=== PATIENT | female | born 1945 | race African-American/Black ===

== ENCOUNTER 2020-07-04 13:22 | Inpatient (IN) | payer MEDICARE, OTHER ==
[~2020-07-04] VITALS: Ht 154.9 cm; Wt 44.5 kg
[~2020-07-04 13:22] MED LIST: ASPI-543 PO; BENA20TA14 PO; DONE10TA40 PO; HYDR-2595 PO; HYDR-4833 PO; LEV100T PO; METF-370 PO
[2020-07-04] MEDS ORDERED: SODIUM CHLORIDE 0.9% 1,000 ML IV ONE (14:15)
[2020-07-04 15:53] LABS: Basophils # (auto) 0 10 ^3/uL (0-0.2); Eosinophils # (auto) 0 10 ^3/uL (0-0.8); Mean Corpuscular Hgb Conc. 33.2 g/dL (32.0-36.0); Monocytes # (auto) 0.3 10 ^3/uL (0-1.3); Neutrophils # (auto) 2.4 10 ^3/uL (1.6-8.6); White Blood Cell 3.4 10^3/uL (4.4-10.8)
[2020-07-04 15:55] LABS: Basophils % (auto) 0.7 % (0.0-2.0); Hematocrit 30.1 % (36.0-46.0); Lymphocytes # (auto) 0.7 10 ^3/uL (0.4-5.4); Lymphocytes % (auto) 21.5 % (10.0-50.0); Mean Corpuscular Hemoglobin 34.5 pg (28.0-32.0); Mean Corpuscular Volume 104.1 fL (80.0-100.0); Monocytes % (auto) 7.8 % (0.0-12.0); Nucleated Red Blood Cells % 0.1 %; Platelet Count (auto) 134 10^3/uL (140-450); Red Blood Cells 2.89 10^6/uL (4.0-5.20); Red Cell Distribution Width 12.8 % (11.8-14.3)
[2020-07-04 16:10] LABS: Albumin 3.7 g/dL (3.4-5.0); Calcium 8.4 mg/dL (8.5-10.1); Magnesium 2.1 mg/dL (1.6-2.6); Potassium 3.8 mmol/L (3.5-5.1)
[2020-07-04 16:15] LABS: Total Protein 7.9 g/dL (6.4-8.2)
[2020-07-04 17:46] LABS: INR 1.07 (0.9-1.15); Partial Thromboplastin Time 24.9 sec (23.0-31.2)
[2020-07-04] MEDS ORDERED: ONDANSETRON HCL 4 MG/2 ML VIAL IV PRN (18:45)
[2020-07-04] MEDS ORDERED: SODIUM CHLORIDE 0.9% 1,000 ML IV SCH (18:45)
[2020-07-04] MEDS ORDERED: NITROGLYCERIN 0.4 MG SL TAB SL PRN (18:45)
[2020-07-04] MEDS ORDERED: DEXTROSE (50%) 50ML SYRG IV PRN (18:45)
[2020-07-04] MEDS ORDERED: MORPHINE SULF INJ 2 MG/ML SYRINGE 1ML IV PRN ×2 (18:45)
[2020-07-04 20:01] LABS: CRP High Sensitivity 2.97 mg/dL (< 0.3)
[2020-07-04] MEDS: HYDROcodone-ACET 5/325MG TAB PO PRN (20:31)
[2020-07-04] MEDS: METOPROLOL TARTRATE 25 MG TAB PO SCH (22:00)
[2020-07-04] MEDS: ALBUTEROL SULF HFA 90MCG INH 200DOSE IN SCH (22:00)
[2020-07-04] MEDS: BUDESONIDE (INHALATION) 180 MCG IH IN SCH (22:00)
[2020-07-04] MEDS: InsuLIN REG 1unit/0.01ml Soln (100units/ml) SC SCH (22:00)
[2020-07-04] MEDS: DOXYCYCLINE 100 MG TAB/CAP PO SCH (22:02)
[2020-07-04] MEDS: DOCUSATE SOD 100 MG CAP PO SCH (22:02)
[2020-07-04] MEDS: ATORVASTATIN 20 MG TAB PO SCH (22:02)
[2020-07-04] MEDS: DONEPEZIL HYDROCHLORIDE 5 MG TAB PO SCH (22:02)
[2020-07-04] MEDS: ACCU-CHEK COMFORT CURVE STRIP VI SCH (22:22)
[2020-07-05 02:44] VITALS: BP 154/81
--- NOTE | 2020-07-05 02:55 | NUR ---
ADMIT TO TELE FROM ER Assumed care of patient who is alert and oriented, COVID positive to the tele #10 running SB @59. Currently on 2L NC @97% with no S/S of distress or SOB noted at this time. Patient denies any pain. Patient is oriented to hospital policies, and room. POC discussed with patient, all questions answered, patient verbalized understanding. Bed is locked in lowest position, side rails up x2. Call light within reach, patient is encouraged to call for assistance as needed. Will continue to monitor PRN/Q1hr.
[2020-07-05 03:35] VITALS: BP 120/69
[2020-07-05] MEDS: InsuLIN REG 1unit/0.01ml Soln (100units/ml) SC SCH ×4 (06:37→22:00)
[2020-07-05] MEDS: ACCU-CHEK COMFORT CURVE STRIP VI SCH ×4 (06:37→22:15)
[2020-07-05] MEDS: LEVOTHYROXINE SODIUM 100 MCG TAB PO SCH (07:04)
[2020-07-05] MEDS: ALBUTEROL SULF HFA 90MCG INH 200DOSE IN SCH ×3 (07:17→22:55)
[2020-07-05] MEDS: BUDESONIDE (INHALATION) 180 MCG IH IN SCH ×2 (07:17→22:54)
--- NOTE | 2020-07-05 07:17 | NUR ---
Respiratory note: PT SEEN, AWAKE AND ALERT, NO RESP DISTRESS NOTED. MDI'S NOT AT BEDSIDE. WILL CALL PHARMACY. HR 56, RR 16, SPO2 95% ON 2L N/C.
--- NOTE | 2020-07-05 07:41 | NUR ---
CARE ENDORSED TO DAY SHIFT RN
[2020-07-05 07:57] LABS: Basophils # (auto) 0 10 ^3/uL (0-0.2); Basophils % (auto) 0.5 % (0.0-2.0); Eosinophils # (auto) 0 10 ^3/uL (0-0.8); Eosinophils % (auto) 0.1 % (0.0-7.0); Hematocrit 32.7 % (36.0-46.0); Lymphocytes # (auto) 0.6 10 ^3/uL (0.4-5.4); Mean Corpuscular Hgb Conc. 33.6 g/dL (32.0-36.0); Monocytes # (auto) 0.2 10 ^3/uL (0-1.3); Monocytes % (auto) 5.7 % (0.0-12.0); Neutrophils # (auto) 3.1 10 ^3/uL (1.6-8.6); Neutrophils % (auto) 78.7 % (37.0-80.0); Platelet Count (auto) 120 10^3/uL (140-450); Red Blood Cells 3.15 10^6/uL (4.0-5.20); Red Cell Distribution Width 12.2 % (11.8-14.3); White Blood Cell 3.9 10^3/uL (4.4-10.8)
[2020-07-05 08:12] LABS: Albumin 3.6 g/dL (3.4-5.0); Calcium 8.3 mg/dL (8.5-10.1); Potassium 3.7 mmol/L (3.5-5.1)
[2020-07-05 08:15] LABS: BUN/Creatinine Ratio 19.5; Bilirubin, Total 1.1 mg/dL (0.2-1.0); Total Protein 7.4 g/dL (6.4-8.2)
[2020-07-05 08:32] VITALS: BP 121/60
[2020-07-05] MEDS: ZINC SULFATE 220mg CAP or TAB PO SCH (10:12)
[2020-07-05] MEDS: CHOLECALCIFEROL (VITD3) 2,000 UNIT CAP PO SCH (10:13)
[2020-07-05] MEDS: ASCORBIC ACID 1,000 MG TAB PO SCH (10:13)
[2020-07-05] MEDS: FAMOTIDINE 20 MG TAB PO SCH (10:13)
[2020-07-05] MEDS: METOPROLOL TARTRATE 25 MG TAB PO SCH (10:14)
[2020-07-05] MEDS: DOXYCYCLINE 100 MG TAB/CAP PO SCH ×2 (10:14→22:14)
[2020-07-05] MEDS: DOCUSATE SOD 100 MG CAP PO SCH ×2 (10:16→22:14)
[2020-07-05 12:29] VITALS: BP 152/89
[2020-07-05] MEDS ORDERED: ENOXAPARIN SOD 40 MG/0.4 ML SYRINGE SC ONE (12:30)
--- NOTE | 2020-07-05 13:04 | NUR ---
New orders received to dc CT with contrast d/t pt increased kidney levels and allergy to iodine per MD Hoover. BLE doppler ordered instead. Cont care
--- NOTE | 2020-07-05 14:05 | NUR ---
MD Hoover aware of results from Doppler including left dvt, per MD Hoover cont Lovenox 40mg as ordered. Cont to monitor
--- NOTE | 2020-07-05 15:34 | NUR ---
paged regarding clarification for Remdesivir, no order found in chart to start Remdesivir today. Awaiting Call back from Dr Hoover
--- NOTE | 2020-07-05 16:01 | NUR ---
No new orders for Remdesivir received from MD Hoover at this time states cont to monitor. MD aware of patient's status including decreased HR in the 40's-50's and order to dc Metoprolol received from MD Burnham. Cont care
--- NOTE | 2020-07-05 19:17 | NUR ---
Patient care endorsed endorsed care to Geraldine rn, pt sitting up in bed eating dinner now. Patient proning throughout the day as tolerated and doing IS as ordered. Pt on 2L n/c. No acute distress or sob noted. Call light within reach and fall precs in place per protocol.
--- NOTE | 2020-07-05 19:20 | NUR ---
Opening Shift Note Assumed care of patient, awake and alert. No S/S of distress/SOB or pain. Pt saturating at 99% on 2L O2 via nasal cannula. Safety measures in place, bed in lowest locked position, bed rails raised x2, call light within reach, bed alarm armed. All needs met at this time. Pt expresses feeling good at this time and is in good spirits. Instructed on POC and to call for assist PRN, will continue to monitor for changes Q1hr and PRN.
[2020-07-05 22:00] VITALS: BP 137/82
[2020-07-05] MEDS: DONEPEZIL HYDROCHLORIDE 5 MG TAB PO SCH (22:14)
[2020-07-05] MEDS: ENOXAPARIN SOD 40 MG/0.4 ML SYRINGE SC SCH (22:14)
[2020-07-05] MEDS: ATORVASTATIN 20 MG TAB PO SCH (22:14)
--- NOTE | 2020-07-06 04:30 | NUR ---
IV insertion IV access obtained, via clean sterile technique by inserting 20 gauge catheter at the right forearm after 1 attempt. IV secured properly. No trauma to site. Patient tolerated well.
--- NOTE | 2020-07-06 04:40 | NUR ---
Pt BP elevated at 172/82, PRN IV hydralazine administered, will reassess and continue to monitor.
[2020-07-06] MEDS: hydrALAZINE HCL 20 MG/ML VL IV PRN (04:51)
[2020-07-06 05:00] VITALS: BP 168/89
[2020-07-06] MEDS: LEVOTHYROXINE SODIUM 100 MCG TAB PO SCH (06:22)
[2020-07-06] MEDS: HYDROcodone-ACET 5/325MG TAB PO PRN (06:23)
[2020-07-06] MEDS: InsuLIN REG 1unit/0.01ml Soln (100units/ml) SC SCH ×4 (06:23→21:48)
[2020-07-06] MEDS: ACCU-CHEK COMFORT CURVE STRIP VI SCH ×4 (06:23→21:47)
[2020-07-06] MEDS: ALBUTEROL SULF HFA 90MCG INH 200DOSE IN SCH ×3 (07:16→22:13)
[2020-07-06] MEDS: BUDESONIDE (INHALATION) 180 MCG IH IN SCH ×2 (07:17→22:13)
[2020-07-06 09:00] VITALS: BP 127/75
[2020-07-06] MEDS ORDERED: FUROSEMIDE 20 MG/2 ML VIAL IV SCH (10:00)
[2020-07-06] MEDS: DOCUSATE SOD 100 MG CAP PO SCH ×2 (10:24→21:46)
[2020-07-06] MEDS: DexAMETHasone SOD PHOS 10MG/1ML VIAL INJ IV SCH (10:24)
[2020-07-06] MEDS: amLODIPine BESYLATE 5 MG TAB PO SCH (10:24)
[2020-07-06] MEDS: ZINC SULFATE 220mg CAP or TAB PO SCH (10:24)
[2020-07-06] MEDS: POTASSIUM CHL 10 Meq TABLET PO SCH (10:25)
[2020-07-06] MEDS: ENOXAPARIN SOD 40 MG/0.4 ML SYRINGE SC SCH ×2 (10:25→21:48)
[2020-07-06] MEDS: FAMOTIDINE 20 MG TAB PO SCH (10:25)
[2020-07-06] MEDS: DOXYCYCLINE 100 MG TAB/CAP PO SCH ×2 (10:25→21:45)
[2020-07-06] MEDS: ASCORBIC ACID 1,000 MG TAB PO SCH (10:25)
[2020-07-06] MEDS: CHOLECALCIFEROL (VITD3) 2,000 UNIT CAP PO SCH (10:25)
[2020-07-06 11:16] LABS: Albumin 3.3 g/dL (3.4-5.0); BUN/Creatinine Ratio 19.6; Calcium 8.4 mg/dL (8.5-10.1); Potassium 3.6 mmol/L (3.5-5.1)
--- NOTE | 2020-07-06 11:20 | NUR ---
Patient found in the bathroom sitting down on the floor. Patient states she got up and she "fell and hit my head". VSS BP 101/72 HR 75 O2 95%. No acute distress or sob noted. MD Villalpando paged to notify. Fall precs in place per protocol including bed alarm on at all times.
[2020-07-06 11:34] LABS: Bilirubin, Total 1.2 mg/dL (0.2-1.0); Total Protein 7.4 g/dL (6.4-8.2)
--- NOTE | 2020-07-06 12:05 | NUR ---
MD aware of patient's status including pt found on floor and c/o pain to posterior head. No abrasions, no bruising, no bleeding noted, no swelling or signs of trauma noted. Awaiting new orders. Will cont care
[2020-07-06] MEDS ORDERED: LEVOTHYROXINE SODIUM 100 MCG/5 ML INJ IV ONE (12:30)
[2020-07-06 13:00] VITALS: BP 138/80
--- NOTE | 2020-07-06 13:04 | NUR ---
Spoke to Pharmacist regarding order for Levothyroxine, Per Stephen he will verify order. Will medicate as ordered once medication is received.
[2020-07-06 17:00] VITALS: BP 143/86
--- NOTE | 2020-07-06 18:30 | NUR ---
Spoke to Mary Anne with the blood bank states no convalescent plasma for this patient yet. Cont to monitor
--- NOTE | 2020-07-06 19:18 | NUR ---
Patient care endorsed to Mague gonzales, laying in bed no acute distress or sob currently 2l n/c 99%. Fall precs in place per protocol bed alarm on at all times
[2020-07-06] MEDS: DONEPEZIL HYDROCHLORIDE 5 MG TAB PO SCH (21:45)
[2020-07-06] MEDS: ACETAMINOPHEN 500 MG TAB PO PRN (21:45)
[2020-07-06] MEDS: ATORVASTATIN 20 MG TAB PO SCH (21:47)
[2020-07-06 22:00] VITALS: BP 137/80
[2020-07-07 05:00] VITALS: BP 138/77
[2020-07-07] MEDS: ACCU-CHEK COMFORT CURVE STRIP VI SCH ×4 (06:42→23:11)
[2020-07-07] MEDS: LEVOTHYROXINE SODIUM 100 MCG TAB PO SCH (06:42)
[2020-07-07] MEDS: InsuLIN REG 1unit/0.01ml Soln (100units/ml) SC SCH ×4 (06:42→22:00)
[2020-07-07] MEDS: ALBUTEROL SULF HFA 90MCG INH 200DOSE IN SCH ×3 (07:19→22:00)
[2020-07-07] MEDS: BUDESONIDE (INHALATION) 180 MCG IH IN SCH ×2 (07:20→22:00)
[2020-07-07 09:00] VITALS: BP 145/82
[2020-07-07 09:27] LABS: BUN/Creatinine Ratio 22.3; Calcium 9.1 mg/dL (8.5-10.1); Potassium 3.6 mmol/L (3.5-5.1)
[2020-07-07] MEDS: FAMOTIDINE 20 MG TAB PO SCH (09:47)
[2020-07-07] MEDS: ENOXAPARIN SOD 40 MG/0.4 ML SYRINGE SC SCH ×2 (09:47→22:00)
[2020-07-07] MEDS: POTASSIUM CHL 10 Meq TABLET PO SCH (09:47)
[2020-07-07] MEDS: ASCORBIC ACID 1,000 MG TAB PO SCH (09:47)
[2020-07-07] MEDS: DOCUSATE SOD 100 MG CAP PO SCH ×2 (09:47→22:00)
[2020-07-07] MEDS: DexAMETHasone SOD PHOS 10MG/1ML VIAL INJ IV SCH (09:48)
[2020-07-07] MEDS: ZINC SULFATE 220mg CAP or TAB PO SCH (09:48)
[2020-07-07] MEDS: CHOLECALCIFEROL (VITD3) 2,000 UNIT CAP PO SCH (09:48)
[2020-07-07] MEDS: DOXYCYCLINE 100 MG TAB/CAP PO SCH ×2 (09:48→22:00)
[2020-07-07 09:56] LABS: Cholesterol 271 mg/dL (< 200); Triglycerides 102 mg/dL (< 150)
[2020-07-07 10:01] LABS: HDL Cholesterol 108 mg/dL (40-59); LDL Cholesterol 134 mg/dL (< 100)
[2020-07-07] MEDS: amLODIPine BESYLATE 5 MG TAB PO SCH (10:04)
[2020-07-07] MEDS: HYDROcodone-ACET 5/325MG TAB PO PRN (10:06)
--- NOTE | 2020-07-07 12:00 | NUR ---
at bedside MD Camarillo at bedside, aware of patient's status including insulin held for BS 147. MD aware of patient's noted increased confusion today and increased temp. MD aware pt received Levothyroxine Iv yesterday as ordered and PO order. New orders received for Synthroid 25mcg po once now and increase PO dose to 150mcg starting tomorrow. Awaiting plasma to become available for pt. Will cont to monitor.
[2020-07-07] MEDS ORDERED: LEVOTHYROXINE SODIUM 50 MCG TAB PO ONE (12:15)
[2020-07-07 13:00] VITALS: BP 141/91
[2020-07-07 17:00] VITALS: BP 119/72
--- NOTE | 2020-07-07 18:48 | NUR ---
Spoke to Patient's noted next of kin Elif Vee [phone] who is patient's son in law. He states he is the one making decisions for her at this time and the one who brought her to the hospital because the patient's "power of attorney law clerk at your hospital on this past week". He states he wants the doctor to call him tomorrow to explain in detail the Convalescent plasma treatment and refused to give consent over the phone at this time as patient is noted to be confused and unable to sign. Will endorse to oncoming rn. Convalescent plasma is not available at this time and blood bank will notify primary nursing when it becomes available. Will endorse to tank gonzales.
--- NOTE | 2020-07-07 19:12 | NUR ---
Patient care endorsed endorsed care to Mague gonzales. Patient sitting upin bed 2l n/c sat 94% no acute distress or sob. Fall precs in place per protocol with bed alarm on at all times.
--- NOTE | 2020-07-07 19:34 | NUR ---
Opening Shift Note Received report and assumed care of patient. Patient is awake and alert to self. No signs or symptoms of distress noted. Instructed patient on plan of care and to call for assistance as needed. Will continue to monitor.
[2020-07-07 19:46] VITALS: BP 119/72
[2020-07-07 22:00] VITALS: BP 146/102
--- NOTE | 2020-07-07 22:15 | NUR ---
PT CONFUSED AND WAS NOT ABLE TO FOLLOW INSTRUCTIONS TO TAKE BREATHING TXS. NO RES DISTRESS NOTED.
[2020-07-07] MEDS: DONEPEZIL HYDROCHLORIDE 5 MG TAB PO SCH (23:11)
[2020-07-07] MEDS: ATORVASTATIN 20 MG TAB PO SCH (23:11)
[2020-07-07] MEDS: ACETAMINOPHEN 500 MG TAB PO PRN (23:12)
[2020-07-07] MEDS: hydrALAZINE HCL 20 MG/ML VL IV PRN (23:36)
[2020-07-08] VITALS (8 sets, daily range): BP systolic 103–144; BP diastolic 65–87
--- NOTE | 2020-07-08 01:12 | NUR ---
Fever and Hypertension Patient' temperature 100.8. Cooling measures initiated and administered Tylenol per MD order. Temperature recheck 100.3. Cooling measures reinforced. Temperature recheck 99.1. Patient's blood pressure 105/108. Administered hydralazine per MD order. Blood pressure recheck 131/69. No signs or symptoms of distress noted. Will continue to monitor.
[2020-07-08 01:52] LABS: Urine Bacteria FEW /hpf (None Seen); Urine Blood Negative /uL (Negative); Urine Specific Gravity 1.023 (1.001-1.035); Urine WBC 2 /hpf (0 - 5)
[2020-07-08] MEDS: BUDESONIDE (INHALATION) 180 MCG IH IN SCH ×2 (06:49→22:00)
[2020-07-08] MEDS: ALBUTEROL SULF HFA 90MCG INH 200DOSE IN SCH ×3 (06:49→22:00)
[2020-07-08] MEDS: InsuLIN REG 1unit/0.01ml Soln (100units/ml) SC SCH ×2 (06:58→12:22)
[2020-07-08] MEDS: ACCU-CHEK COMFORT CURVE STRIP VI SCH ×2 (06:58→11:30)
[2020-07-08] MEDS: LEVOTHYROXINE SODIUM 100 MCG TAB PO SCH (06:58)
--- NOTE | 2020-07-08 08:00 | NUR ---
Opening Shift Note Assumed care of patient, awake and alert to name and . Patient answers questions and falls asleep. Patient is on 2L NC. No S/S of distress/SOB or pain. Instructed on POC and to call for assist PRN, will continue to monitor for changes Q1hr and PRN. Bed is locked, bed alarm on and in lowest position. Call light within reach.
[2020-07-08] MEDS: ZINC SULFATE 220mg CAP or TAB PO SCH (10:00)
[2020-07-08] MEDS: DOCUSATE SOD 100 MG CAP PO SCH ×2 (10:00→22:05)
[2020-07-08] MEDS ORDERED: ENOXAPARIN SOD 40 MG/0.4 ML SYRINGE SC SCH (10:00)
[2020-07-08] MEDS ORDERED: DOXYCYCLINE 100MG/250ML 250 ML IV SCH (10:00)
[2020-07-08] MEDS: DexAMETHasone SOD PHOS 10MG/1ML VIAL INJ IV SCH (11:01)
[2020-07-08] MEDS: POTASSIUM CHL 10 Meq TABLET PO SCH (11:03)
[2020-07-08] MEDS: FAMOTIDINE 20 MG TAB PO SCH (11:03)
[2020-07-08] MEDS: ASCORBIC ACID 1,000 MG TAB PO SCH (11:03)
[2020-07-08] MEDS: amLODIPine BESYLATE 5 MG TAB PO SCH (11:03)
[2020-07-08] MEDS: CHOLECALCIFEROL (VITD3) 2,000 UNIT CAP PO SCH (11:04)
--- NOTE | 2020-07-08 11:05 | NUR ---
MEDICATION HELD 1000 AM MEDICATION HELD FOR ZINC SULFATE AND COLACE DUE TO PATIENT UNABLE TO SWALLOW. ALL OTHER MEDS DUE WERE CRUSHED AND TAKEN WITH APPLE SAUCE PATIENT WAS ABLE TO SWALLOW MEDS. WILL NOTIFY MD OF PATIENTS MED HELD.
--- NOTE | 2020-07-08 13:00 | NUR ---
PT PER PT PATIENT HAS DECREASE IN SPO2 ON AMBULATION. PATIENT JUST DANGLED FEET AT BED AND WAS PUT BACK IN BED. WILL NOTIFY DR. GARCIA OF PATIENT DROP IS SPO2 ON AMBULATION. WILL CONTINUE TO MONITOR PATIENT.
[2020-07-08] MEDS ORDERED: REMDESIVIR PER PHARMACY IV SCH (13:30)
--- NOTE | 2020-07-08 13:48 | NUR ---
Respiratory note: FOUND PATIENT ON ROOM AIR, SPO2 84%. PLACED PATIENT ON A 10L OXYMIZER. IT TOOK PATIENT APPROX 45 MINUTES TO RECOVER. ABG DRAWN, SPO2 95%. RN INFORMED
--- NOTE | 2020-07-08 14:00 | NUR ---
RT RT AT BEDSIDE TO ASSESS PATIENT. PER RT PATIENT SPO2 WAS 86% ON 10L OXYMIZER. UNABLE TO GET SPO2 TO INCREASE. PATIENT O2 WAS OFF WHEN RT WALKED IN. PATIENT WAS PUT ON BEDPAN. PAGED DR. GARCIA TO NOTIFY OF PATIENT SPO2 STATUS. GOT ORDER FOR ABG TO BE DRAWN NOTIFIED RT. WILL AWAIT RESULTS. WILL CONTINUE TO MONITOR PATIENT.
--- NOTE | 2020-07-08 14:43 | NUR ---
Nutrition Assessment Note please see attached link for complete assessment Est Energy needs IBW 47 [id number] kcals (25-30kcal/kgIBW), Est Protein needs: 37-47 gms/day (0.8-1.0 gm/kgIBW r/t elev RFT). Will continue to monitor and reassess prn. Addendum: 07/08/20 at [address] Amended: Links added.
--- NOTE | 2020-07-08 15:02 | NUR ---
CONSENTS PHONE CALL MADE TO VENANCIO ARELLANO AT [phone] REGARDING CONSENTS FOR PLASMA TRANSFUSION AND REMDESIVIR. DR. GARCIA HAD SPOKEN TO FAMILY AND ANSWERED ALL QUESTIONS AND CONCERNS. PATIENT IS UNABLE TO SIGN FOR CONSENTS DUE TO BEING ALERT TO NAME AND . OBTAINED TELEPHONE CONSENT USING 2 RN (NIKI ARMENDARIZ AND GONZALEZ ARMENDARIZ) VERIFICATION. CONSENTS WILL BE PLACED IN CHART.
[2020-07-08] MEDS: PIPERACILLIN-TAZOB 2.25GM 50 ML IV SCH ×2 (18:14→23:40)
[2020-07-08] MEDS ORDERED: REMDESIVIR 200 MG in NS 210ml LOADING DOSE ADULT IV ONE (20:00)
--- NOTE | 2020-07-08 20:40 | NUR ---
REMDESIVIR INFUSION STARTED CONSENTS VERIFIED. IV LINE PATENT. WILL MONITOR FOR S/S OF REACTION.
--- NOTE | 2020-07-08 22:03 | NUR ---
REMDESIVIR COMPLETE NO S/S OF TRANSFUSION REACTION. PATIENT TOLERATED WELL. VITALS STABLE.
[2020-07-08] MEDS: DONEPEZIL HYDROCHLORIDE 5 MG TAB PO SCH (22:04)
[2020-07-08] MEDS: APIXABAN 5 MG TAB PO SCH (22:05)
[2020-07-08] MEDS: ATORVASTATIN 20 MG TAB PO SCH (22:05)
[2020-07-09 05:00] VITALS: BP 150/80
[2020-07-09] MEDS: BUDESONIDE (INHALATION) 180 MCG IH IN SCH ×2 (06:03→22:03)
[2020-07-09] MEDS: ALBUTEROL SULF HFA 90MCG INH 200DOSE IN SCH ×3 (06:03→22:03)
[2020-07-09] MEDS: PIPERACILLIN-TAZOB 2.25GM 50 ML IV SCH ×3 (06:06→19:06)
[2020-07-09] MEDS: LEVOTHYROXINE SODIUM 100 MCG TAB PO SCH (06:07)
[2020-07-09 07:32] LABS: Basophils # (auto) 0 10 ^3/uL (0-0.2); Basophils % (auto) 0.3 % (0.0-2.0); Eosinophils # (auto) 0 10 ^3/uL (0-0.8); Eosinophils % (auto) 0.2 % (0.0-7.0); Hematocrit 29.5 % (36.0-46.0); Hemoglobin 9.9 g/dL (12.2-16.2); Lymphocytes # (auto) 0.8 10 ^3/uL (0.4-5.4); Lymphocytes % (auto) 10.7 % (10.0-50.0); Mean Corpuscular Hgb Conc. 33.7 g/dL (32.0-36.0); Mean Corpuscular Volume 100.9 fL (80.0-100.0); Monocytes # (auto) 0.2 10 ^3/uL (0-1.3); Monocytes % (auto) 2.8 % (0.0-12.0); Neutrophils # (auto) 6.5 10 ^3/uL (1.6-8.6); Nucleated Red Blood Cells % 0.1 %; Platelet Count (auto) 153 10^3/uL (140-450); Red Blood Cells 2.92 10^6/uL (4.0-5.20); Red Cell Distribution Width 12.7 % (11.8-14.3); White Blood Cell 7.6 10^3/uL (4.4-10.8)
[2020-07-09 07:41] LABS: Albumin 3.1 g/dL (3.4-5.0); Calcium 8.9 mg/dL (8.5-10.1); Magnesium 1.7 mg/dL (1.6-2.6); Potassium 4.2 mmol/L (3.5-5.1)
--- NOTE | 2020-07-09 07:45 | NUR ---
Opening Shift Note Assumed care of patient, awake and alert to name and . No S/S of distress/SOB or pain. Patient is on 6L Oxymizer. Instructed on POC and to call for assist PRN, will continue to monitor for changes Q1hr and PRN. Bed is locked, bed alarm on and in lowest position. Call light within reach.
[2020-07-09 07:47] LABS: BUN/Creatinine Ratio 17.5; Bilirubin, Total 1.2 mg/dL (0.2-1.0); Total Protein 7.6 g/dL (6.4-8.2)
[2020-07-09 08:00] VITALS: BP 123/66
--- NOTE | 2020-07-09 08:45 | NUR ---
CT CHEST PATIENT WILL BE TRANSPORTED VIA [facility] FOR CT OF CHEST. PATIENT PLACED ON 15L NRB DUE TO PATIENT SPO2 DROPPING ON EXERTION. PATIENT SPO2 READING AT 88% ON 6L OXYMIZER. WILL FOLLOW PATIENT TO CT TO CONTINUE WITH ASSESSMENT. WHEN PATIENT PLACED ON 15L NRB PATIENT SPO2 INCREASED TO 100%. WILL CONTINUE PATIENT ON NRB 15L AND NOTIFY DR. GARCIA. WILL CONTINUE TO MONITOR PATIENT.
--- NOTE | 2020-07-09 09:11 | NUR ---
Assessment Patient is a 74 year old female, patient is unable to participate with initial assessment. SW called son in law (Elif [phone]) for initial assessment. Per son in law, patient was alert and oriented prior to being admitted to [facility]. Per son in law, patient cognitive abilities were intact. Per son in law, patient could do ADL's and ambulate independently with minimum assistance from his daughter who was the offline editor of the patient. Per son in law, patient is receiving social security as income. Per son in law, patient will need placement, patient granddaughter who was the offline editor, recently on due to Covid 19. Per son in law, patient is receiving pension and social security benefits of $2000.00 per month. Per son in law, he can not take on the responsibility of offline editor of his mother in law, due to the of his daughter (patient granddaughter/offline editor), and his recently was diagnose with brain aneurysm. Discharge planning: Patient will benefit from being place to a board and care facility, due to lack of family support and residency. Family is in agreement for patient to be placed. There are no other discharge planning concerns to address at the moment. Addendum: 07/09/20 at 0922 by DENAE STEINBERG Amended: Links added.
[2020-07-09] MEDS: ZINC SULFATE 220mg CAP or TAB PO SCH (10:00)
[2020-07-09] MEDS: DOCUSATE SOD 100 MG CAP PO SCH ×2 (10:00→21:49)
[2020-07-09] MEDS: DexAMETHasone SOD PHOS 10MG/1ML VIAL INJ IV SCH (11:03)
[2020-07-09] MEDS: POTASSIUM CHL 10 Meq TABLET PO SCH (11:04)
[2020-07-09] MEDS: APIXABAN 5 MG TAB PO SCH ×2 (11:04→21:49)
[2020-07-09] MEDS: amLODIPine BESYLATE 5 MG TAB PO SCH (11:04)
[2020-07-09] MEDS: CHOLECALCIFEROL (VITD3) 2,000 UNIT CAP PO SCH (11:05)
[2020-07-09] MEDS: ASCORBIC ACID 1,000 MG TAB PO SCH (11:05)
[2020-07-09] MEDS: FAMOTIDINE 20 MG TAB PO SCH (11:06)
[2020-07-09 12:00] VITALS: BP 125/74
--- NOTE | 2020-07-09 13:25 | NUR ---
SPO2 MONITOR PLACED PATIENT ON CONTINUOS SPO2 MONITORING DUE TO BEING ON HIGH FLOW NRB AT 15L AND SPO2 DROPPING ON EXERTION. PATIENT WAS BEING FEED AND PLACED ON OXYMIZER TO TRY AND EAT PATIENT SPO2 DROPPED TO 86%. PATIENT DID NOT TOLERATE FEEDING. PATIENT PLACED BACK ON 15L NRB AND SPO2 INCREASED TO 91%. WILL CONTINUE TO MONITOR PATIENT.
[2020-07-09] MEDS ORDERED: SODIUM CHLORIDE 0.9% 1,000 ML IV ONE (13:30)
[2020-07-09] MEDS ORDERED: MAGNESIUM SULFATE 1GM/100ML 100 ML IV ONE (13:30)
--- NOTE | 2020-07-09 14:44 | NUR ---
Pt needing placement due to recent of her primary caregiver/daughter and son in law is unable to provide care. Per the son in law pts income is $2000 a month and he is in agreeance with board and care placement. Patient is COVID positive and can only go to a facility accepting positive patients. Contacted [facility] ([phone] ) and pt accepted for admission by Teresita, facility structural steel equipment erector. Provider states pt is not medically stable for discharge at this time. Notified facility that patient is not being discharged today. Per Teresita, cannot hold the bed indefinitely and may not be available if not discharged in the next 24-48 hours.
--- NOTE | 2020-07-09 16:31 | NUR ---
BLOOD BANK PHONE CALL MADE TO BLOOD BANK REGARDING STATUS OF PENDING PLASMA. PER BLOOD BANK TECH PATIENT PLASMA IS STILL PENDING DUE TO THE HIGH VALUE OF PLASMA ORDERS. WILL CONTINUE TO MONITOR STATUS OF PLASMA.
[2020-07-09] MEDS: REMDESIVIR 100mg in NS 230ml DAILYx4DAYS (NO VENT) IV SCH (16:55)
[2020-07-09 16:56] VITALS: BP 142/69
--- NOTE | 2020-07-09 18:22 | NUR ---
SWALLOW EVALUATION CONDUCTED. PT TRIALED WITH THIN, PUREE AND NECTAR THICK LIQUIDS. PT UNABLE TO SAFELY TOLERATE THIN TRIAL AND COUGHED POST PO INTAKE. PUREE, NECTAR AND MECHANICAL SOFT TOLERATED WITHOUT OVERT SIGNS OR SYMPTOMS OF ASPIRATION PRESENT. PT REQUIRED MODERATE VERBAL CUEING FOR PO INTAKE TO REDUCED ORAL DYSPHAGIA OF BOLUS HOLDING. PT REQUIRED REPETITION TO FOLLOW ONE STEP COMMANDS. DIET RECOMMENDED MECHANICAL SOFT WITH NECTAR THICK LIQUIDS. NURSING NOTIFIED.
[2020-07-09] MEDS: DONEPEZIL HYDROCHLORIDE 5 MG TAB PO SCH (21:49)
[2020-07-09 22:00] VITALS: BP 135/75
[2020-07-10] MEDS: PIPERACILLIN-TAZOB 2.25GM 50 ML IV SCH ×4 (00:32→18:00)
[2020-07-10 05:00] VITALS: BP 129/71
[2020-07-10] MEDS: LEVOTHYROXINE SODIUM 100 MCG TAB PO SCH (06:24)
[2020-07-10] MEDS: ALBUTEROL SULF HFA 90MCG INH 200DOSE IN SCH ×3 (06:51→21:52)
[2020-07-10] MEDS: BUDESONIDE (INHALATION) 180 MCG IH IN SCH ×2 (06:51→21:51)
[2020-07-10 07:33] LABS: Potassium 3.9 mmol/L (3.5-5.1)
[2020-07-10 07:49] LABS: Albumin 2.9 g/dL (3.4-5.0); Bilirubin, Total 1.3 mg/dL (0.2-1.0); Calcium 8.8 mg/dL (8.5-10.1); Magnesium 2.6 mg/dL (1.6-2.6); Total Protein 7.3 g/dL (6.4-8.2)
[2020-07-10 09:00] VITALS: BP 128/72
[2020-07-10] MEDS: DOCUSATE SOD 100 MG CAP PO SCH ×2 (10:10→22:36)
[2020-07-10] MEDS: DexAMETHasone SOD PHOS 10MG/1ML VIAL INJ IV SCH (10:10)
[2020-07-10] MEDS: APIXABAN 5 MG TAB PO SCH ×2 (10:10→22:37)
[2020-07-10] MEDS: ZINC SULFATE 220mg CAP or TAB PO SCH (10:10)
[2020-07-10] MEDS: FAMOTIDINE 20 MG TAB PO SCH (10:11)
[2020-07-10] MEDS: amLODIPine BESYLATE 5 MG TAB PO SCH (10:11)
[2020-07-10] MEDS: CHOLECALCIFEROL (VITD3) 2,000 UNIT CAP PO SCH (10:11)
[2020-07-10] MEDS: ASCORBIC ACID 1,000 MG TAB PO SCH (10:11)
[2020-07-10 12:43] VITALS: BP 128/72
[2020-07-10 13:00] VITALS: BP 109/59
[2020-07-10 17:00] VITALS: BP 126/76
--- NOTE | 2020-07-10 17:20 | NUR ---
REMDESIVIR REMDESIVIR INFUSION INITIATED AT THIS TIME. BLOOD PRESSURE 142/83 AND HR 73. WILL CONTINUE CARE.
--- NOTE | 2020-07-10 17:24 | NUR ---
BLOOD BANK RECEIVED CALL FROM BLOOD BANK STATING CONVALESCENT PLASMA IS READY AND ASKING FOR A THAW TIME. THIS RN IS JUST STARTING REMDESIVIR AND HAS A ZOSYN AT 1800. INFORMED BLOOD BANK THIS RN WILL ENDORSE PLASMA TO NEXT SHIFT. WILL CONTINUE CARE.
[2020-07-10] MEDS: REMDESIVIR 100mg in NS 230ml DAILYx4DAYS (NO VENT) IV SCH (17:35)
--- NOTE | 2020-07-10 17:48 | NUR ---
FAMILY DYNAMICS EXPLAINED TO PATIENT I SPOKE WITH HER GRANDSON. PATIENT INFORMS THIS RN THAT HER GRANDSON IS MEAN TO HER. WHEN ASKED TO EXPAND ON THIS SHE SAYS "HE BARELY FEEDS ME AND LEAVES ME DIRTY. HE'S MEAN. I DON'T WANT TO GO BACK THERE." PLAN IN PLACE WITH MACHINE HEEL SEAT LASTER AT THIS TIME TO PLACE PATIENT IN A BOARD AND CARE. WILL CONTINUE CARE.
--- NOTE | 2020-07-10 17:58 | NUR ---
REMDESIVIR BLOOD PRESSURE IS NOW 114/68 WITH A PULSE OF 76. PATIENT IS ASYMPTOMATIC. REMDESIVIR INFUSION SLOWED DOWN TO 90ML/HR PER HYPOTENSION PROTOCOL. WILL CONTINUE TO MONITOR.
--- NOTE | 2020-07-10 18:56 | NUR ---
REMDESIVIR COMPLETE INFUSION NOW COMPLETE. BLOOD PRESSURE IS 127/79 WITH A PULSE OF 84. NO S/S OF DISTRESS NOTED. WILL CONTINUE CARE.
--- NOTE | 2020-07-10 19:05 | NUR ---
Opening Shift Note Assumed care of patient, awake and alert to name and . Patient answers questions and falls asleep. Patient is on 6L NC O2 SAT OF 98%. No S/S of distress/SOB or pain. Instructed on POC and to call for assist PRN, will continue to monitor for changes Q1hr and PRN. Bed is locked, bed alarm on and in lowest position. Call light within reach.
--- NOTE | 2020-07-10 21:56 | NUR ---
AT BEDSIDE FOR MDI TX. PT FOUND ON ROOM AIR AT THIS TIME. NRB RUNNING AT BEDSIDE. SPO2 93% ON RA WITH INTERMITTENT DESATURATION TO 88%. PT PLACED ON 5L NC TO MAINTAIN SPO2. WILL CONTINUE WITH NEXT SCHEDULED TX.
[2020-07-10 22:00] VITALS: BP 115/67
[2020-07-10] MEDS: DONEPEZIL HYDROCHLORIDE 5 MG TAB PO SCH (22:36)
[2020-07-11] VITALS (9 sets, daily range): BP systolic 118–155; BP diastolic 57–92
--- NOTE | 2020-07-11 00:26 | NUR ---
ONGOING COVALESCENT TRANSFUSION. VITALS WITHIN NORMAL LIMIT. PATIENT NO SOB AND NO ACUTE DISTRESS SEEN.
--- NOTE | 2020-07-11 01:50 | NUR ---
END COVALESCENT PLASMA TRANSFUSION. PATIENT TOLERATED.
[2020-07-11] MEDS: PIPERACILLIN-TAZOB 2.25GM 50 ML IV SCH ×4 (02:02→17:56)
--- NOTE | 2020-07-11 05:20 | NUR ---
SENT URINE SAMPLE FOR URINE CREA, PROTEIN AND SODIUM.
[2020-07-11] MEDS: ALBUTEROL SULF HFA 90MCG INH 200DOSE IN SCH (06:11)
[2020-07-11] MEDS: BUDESONIDE (INHALATION) 180 MCG IH IN SCH ×2 (06:11→19:53)
[2020-07-11] MEDS: LEVOTHYROXINE SODIUM 100 MCG TAB PO SCH (06:23)
[2020-07-11 06:24] LABS: Sodium Urine 49 mmol/L (40-220)
[2020-07-11 06:40] LABS: Creatinine, Urine 80 mg/dL (30.0-125.0)
[2020-07-11 06:41] LABS: Protein, Urine 121.8 mg/dL (0.0-11.9)
--- NOTE | 2020-07-11 06:59 | NUR ---
CLOSING SHIFT REPORT Assumed care of patient, resting in bed. No S/S of distress/SOB or pain. Patient is on 5L nasal cannula. Bed is locked and in lowest position. bed alarm on, side rails up x2. Call light within reach.
[2020-07-11 07:14] LABS: Hematocrit 24.1 % (36.0-46.0); Hemoglobin 8.1 g/dL (12.2-16.2)
[2020-07-11 07:34] LABS: Potassium 3.7 mmol/L (3.5-5.1)
[2020-07-11 07:42] LABS: Albumin 2.9 g/dL (3.4-5.0); Bilirubin, Total 1.5 mg/dL (0.2-1.0); Total Protein 7.4 g/dL (6.4-8.2)
--- NOTE | 2020-07-11 08:00 | NUR ---
OPENING SHIFT NOTE: PATIENT ASLEEP IN BED, AWOKEN TO VOICE/NAME. PATIENT NON-RESPONSIVE VERBALLY, ABLE TO NOD HEAD AND MUMBLE SOUNDS. PATIENT UPDATED ON PLAN OF CARE AND ATTEMPTED TO RE-ORIENT. RESPIRATIONS EVEN AND UNLABORED ON 4LNC. SANDHU HUNG BELOW BLADDER, FREE OF KINKS. CALL LIGHT WITHIN REACH. ASPIRATION PRECAUTIONS IN PLACE. BED ALARM ON, WILL CONTINUE TO MONITOR.
--- NOTE | 2020-07-11 09:00 | NUR ---
PATIENT ABLE TO EAT 75% OF BREAKFAST WITH MAX ASSIST. TOLERATED WELL.
[2020-07-11] MEDS: DexAMETHasone SOD PHOS 10MG/1ML VIAL INJ IV SCH (09:55)
[2020-07-11] MEDS: ZINC SULFATE 220mg CAP or TAB PO SCH (09:55)
[2020-07-11] MEDS: APIXABAN 5 MG TAB PO SCH ×2 (09:55→21:41)
[2020-07-11] MEDS: DOCUSATE SOD 100 MG CAP PO SCH ×2 (09:55→21:40)
[2020-07-11] MEDS: FAMOTIDINE 20 MG TAB PO SCH (09:56)
[2020-07-11] MEDS: ASCORBIC ACID 1,000 MG TAB PO SCH (09:56)
[2020-07-11] MEDS: amLODIPine BESYLATE 5 MG TAB PO SCH (09:56)
[2020-07-11] MEDS: CHOLECALCIFEROL (VITD3) 2,000 UNIT CAP PO SCH (09:57)
[2020-07-11] MEDS: HYDROcodone-ACET 5/325MG TAB PO PRN (09:58)
--- NOTE | 2020-07-11 11:19 | NUR ---
MD KRUEGER IN UNIT: AFTER COMPLETION OF REMDESIVIR COURSE, PATIENT TO FIND PLACEMENT AND ATTEMPT TO DC, WILL CONTINUE TO TITRATE O2 NEEDED.
--- NOTE | 2020-07-11 12:53 | NUR ---
Nutrition Followup Note Pt wt is 46.4 kg Pt is positive for COVID, and did not brick picker the phone when called. Pt is with a Mechanical Soft diet, appetite is inadequate aeb ave 45% x5 PO intake per RN doc Est Energy needs IBW 47 [id number] kcals (25-30kcal/kgIBW), Est Protein needs: 37-47 gms/day (0.8-1.0 gm/kgIBW r/t elev RFT). Will continue to monitor and reassess prn. LABS: BUN 42 H, CREAT 1.5 H, BILI 1.5 H, AST 86 H, ALB 2.9 L GI: Pt is incontinent per RN note BS: 13 mod risk. Refer to wound assessment report for further details PES: 1) Increased nutrient needs r/t chronic medical condition aeb pt`s with weakness underweight and inadequate PO 2) Altered nutrition related lab valeus r.t current chronic medical condition aeb elev RFT choles Comments Will continue to monitor PO status, skin status, pertinent labs and weight trends. Will f/u in 3-5 days 1) Consider CCHO 45 gm low choles along with current diet 2) Refer to CDE on DC 3) Continue current plan of care
--- NOTE | 2020-07-11 14:44 | NUR ---
PHYSICAL THERAPY AT BEDSIDE, PATIENT ABLE TO SIT UP AT SIDE OF THE BED. O2 SAT DROPPED TO 80%SPO2, ENCOURAGED PURSED LIP BREATHING, O2 BACK UP TO 5LNC.
--- NOTE | 2020-07-11 15:29 | NUR ---
VENU called Teresita from [facility] to confirm if patient still had a bed reserve for her, Per Teresita, the bed was on hold for 24-48 hours only. Per Teresita, patient has lost her bed reservation. VENU will find another board and care facility to accept patient.
[2020-07-11] MEDS: REMDESIVIR 100mg in NS 230ml DAILYx4DAYS (NO VENT) IV SCH (17:02)
--- NOTE | 2020-07-11 19:05 | NUR ---
Opening Shift Note Assumed care of patient, awake and alert to name and . Patient answers questions and falls asleep. Patient is on 5L NC O2 SAT OF 93%. No S/S of distress/SOB or pain. Instructed on POC and to call for assist PRN, will continue to monitor for changes Q1hr and PRN. Bed is locked, bed alarm on and in lowest position. Call light within reach.
[2020-07-11] MEDS: ALBUTEROL SULF HFA 90MCG INH 200DOSE IN PRN (21:24)
[2020-07-11] MEDS: DONEPEZIL HYDROCHLORIDE 5 MG TAB PO SCH (21:40)
--- NOTE | 2020-07-11 22:00 | NUR ---
patient denies any pain and no sob seen. will continue to monitor.
[2020-07-12] MEDS: PIPERACILLIN-TAZOB 2.25GM 50 ML IV SCH ×4 (00:24→18:38)
[2020-07-12 05:00] VITALS: BP 141/78
[2020-07-12] MEDS: LEVOTHYROXINE SODIUM 100 MCG TAB PO SCH (06:15)
[2020-07-12 07:15] LABS: Basophils # (auto) 0 10 ^3/uL (0-0.2); Basophils % (auto) 0.1 % (0.0-2.0); Eosinophils # (auto) 0 10 ^3/uL (0-0.8); Hemoglobin 7.7 g/dL (12.2-16.2); Monocytes # (auto) 0.2 10 ^3/uL (0-1.3)
[2020-07-12 07:17] LABS: Hematocrit 23.2 % (36.0-46.0); Lymphocytes # (auto) 0.5 10 ^3/uL (0.4-5.4); Lymphocytes % (auto) 5.5 % (10.0-50.0); Mean Corpuscular Hemoglobin 34.1 pg (28.0-32.0); Mean Corpuscular Volume 103.2 fL (80.0-100.0); Monocytes % (auto) 2.3 % (0.0-12.0); Neutrophils # (auto) 8.4 10 ^3/uL (1.6-8.6); Neutrophils % (auto) 92.1 % (37.0-80.0); Nucleated Red Blood Cells % 0.2 %; Platelet Count (auto) 189 10^3/uL (140-450); Red Blood Cells 2.25 10^6/uL (4.0-5.20); Red Cell Distribution Width 12.9 % (11.8-14.3); White Blood Cell 9.1 10^3/uL (4.4-10.8)
--- NOTE | 2020-07-12 07:20 | NUR ---
OPENING SHIFT NOTE ASSUMED CARE OF PATIENT. AWOKEN TO NAME, NONRESPONSIVE VERBALLY, MUMBLES. ON 5L NC, NO SOB/DISTRESS NOTED. SANDHU HUNG BELOW BLADDER, FREE OF KINKS. SAFETY MEASURES IN PLACE, BED LOCKED IN LOWEST POSITION, ASPIRATION PRECAUTIONS, CALL LIGHT WITHIN REACH.
[2020-07-12 07:39] LABS: Albumin 2.8 g/dL (3.4-5.0); Calcium 8.9 mg/dL (8.5-10.1); Potassium 3.4 mmol/L (3.5-5.1)
[2020-07-12 07:51] LABS: BUN/Creatinine Ratio 23.8; Bilirubin, Total 1.6 mg/dL (0.2-1.0)
[2020-07-12] MEDS: BUDESONIDE (INHALATION) 180 MCG IH IN SCH ×2 (08:18→23:16)
[2020-07-12] MEDS: ALBUTEROL SULF HFA 90MCG INH 200DOSE IN PRN (08:18)
[2020-07-12 08:20] VITALS: BP 138/87
[2020-07-12] MEDS: DexAMETHasone SOD PHOS 10MG/1ML VIAL INJ IV SCH (10:40)
[2020-07-12] MEDS: DOCUSATE SOD 100 MG CAP PO SCH ×2 (10:40→22:54)
[2020-07-12] MEDS: ZINC SULFATE 220mg CAP or TAB PO SCH (10:40)
[2020-07-12] MEDS: APIXABAN 5 MG TAB PO SCH ×2 (10:41→22:54)
[2020-07-12] MEDS: amLODIPine BESYLATE 5 MG TAB PO SCH (10:41)
[2020-07-12] MEDS: CHOLECALCIFEROL (VITD3) 2,000 UNIT CAP PO SCH (10:42)
[2020-07-12] MEDS: ASCORBIC ACID 1,000 MG TAB PO SCH (10:42)
[2020-07-12] MEDS: FAMOTIDINE 20 MG TAB PO SCH (10:42)
--- NOTE | 2020-07-12 11:05 | NUR ---
DOCTOR AT BEDSIDE DR. KRUEGER AT BEDSIDE, UPDATED ON POC. CONTINUE TO MONITOR SAO2 LEVELS AT 5L NC.
--- NOTE | 2020-07-12 11:15 | NUR ---
Midline Placement: Patient educated on need for midline placement. All risks and benefits explained and all questions and concerns addresses prior to procedure. 18g/10cm midline inserted via LEFT BRACHIAL vein using Ultrasound. Sterile technique utilized. Blood return obtained from THE SINGLE lumen and flushed easily with NS using proper technique. Midline secured with saline lock; biodisc and occlusive dressing applied. Primary RN notified. Midline lot # [id number].
[2020-07-12 12:30] VITALS: BP 133/47
--- NOTE | 2020-07-12 13:47 | NUR ---
Per Teresita from [facility] [phone], Teresita can accept patient again. VENU informed Teresita, that patient possible discharge date may be Wednesday or Wednesday per Sofia ARMENDARIZ, due to patient medical treatment. Per Teresita, she can accept patient as early as Wednesday if treatment if finished. VENU informed Teresita that Wednesday is also a possibility for discharge, depending on the completion of treatment. VENU will informed Sofia ARMENDARIZ, of placement status.
--- NOTE | 2020-07-12 14:00 | NUR ---
UPDATED FAMILY ON PLAN OF CARE.
[2020-07-12] MEDS: POTASSIUM CHL 20MEQ/100ML 100 ML IV SCH ×2 (14:01→16:42)
--- NOTE | 2020-07-12 15:27 | NUR ---
Per Teresita from [facility] [phone], she will accept patient on Tuesday July 14, 2020, Per Teresita she will provide transportation for patient. VENU notify Nurse Sofia that patient can transfer once treatment is completed. Per Sofia, this coming Wednesday patient can transfer to [facility].
--- NOTE | 2020-07-12 16:13 | NUR ---
VENU spoke with Loida from [facility], to notify that patient will arrive at facility on WednesdayJuly 14. [facility] ([phone]) is asking for nursing chief of staff to call with ETA time for Wednesday to make sure that oxygen is delivered before patient arrive . Please call [facility] [phone].
--- NOTE | 2020-07-12 16:44 | NUR ---
PATIENT ABLE TO AMBULATE WITH PHYSICAL THERAPY.
--- NOTE | 2020-07-12 16:48 | NUR ---
PLAN OF DISCHARGE: LAST DOSE OF REMDESIVIR TOMORROW SAT. 07-13-20 SCHEDULED AT 1700. PATIENT CAN BE CLEARED FOR DC AFTER TREATMENT ON WEDNESDAY PER SWIFT TENDER TIME AT 1500 07/14. PATIENT STILL PENDING OXYGEN AT THIS TIME. WILL CONTINUE TO MONITOR.
[2020-07-12 17:00] VITALS: BP 132/78
[2020-07-12] MEDS: HYDROcodone-ACET 5/325MG TAB PO PRN (17:16)
[2020-07-12] MEDS: REMDESIVIR 100mg in NS 230ml DAILYx4DAYS (NO VENT) IV SCH (17:16)
--- NOTE | 2020-07-12 19:20 | NUR ---
Opening Shift Note Received report from renee Black RN. Assumed care of patient, awake and alert, but lethargic. No S/S of distress/SOB or pain. Instructed on POC and to call for assist PRN, will continue to monitor for changes Q1hr and PRN. Bed placed in lowest position, bed alarm turned on and call light within reach.
--- NOTE | 2020-07-12 20:00 | NUR ---
Assisted patient with dinner. Patient only consumed about 25% on the meal.
[2020-07-12 22:00] VITALS: BP 143/70
[2020-07-12] MEDS: DONEPEZIL HYDROCHLORIDE 5 MG TAB PO SCH (22:54)
[2020-07-13] MEDS: PIPERACILLIN-TAZOB 2.25GM 50 ML IV SCH ×4 (00:15→18:20)
[2020-07-13] MEDS: ALBUTEROL SULF HFA 90MCG INH 200DOSE IN PRN ×3 (01:27→23:00)
[2020-07-13 05:00] VITALS: BP 143/88
[2020-07-13] MEDS: LEVOTHYROXINE SODIUM 100 MCG TAB PO SCH (06:46)
[2020-07-13] MEDS: BUDESONIDE (INHALATION) 180 MCG IH IN SCH ×2 (07:46→23:00)
[2020-07-13 07:58] LABS: Calcium 8.8 mg/dL (8.5-10.1); Potassium 3.4 mmol/L (3.5-5.1)
[2020-07-13 08:05] LABS: Albumin 2.7 g/dL (3.4-5.0); Bilirubin, Total 1.4 mg/dL (0.2-1.0); Total Protein 7.4 g/dL (6.4-8.2)
[2020-07-13 08:35] VITALS: BP 142/81
[2020-07-13] MEDS ORDERED: POTASSIUM CHL 20 Meq TABLET PO ONE (08:45)
[2020-07-13] MEDS: DexAMETHasone SOD PHOS 10MG/1ML VIAL INJ IV SCH (09:44)
[2020-07-13] MEDS: DOCUSATE SOD 100 MG CAP PO SCH ×2 (09:44→21:38)
[2020-07-13] MEDS: ZINC SULFATE 220mg CAP or TAB PO SCH (09:44)
[2020-07-13] MEDS: FAMOTIDINE 20 MG TAB PO SCH (09:45)
[2020-07-13] MEDS: APIXABAN 5 MG TAB PO SCH ×2 (09:45→21:38)
[2020-07-13] MEDS: amLODIPine BESYLATE 5 MG TAB PO SCH (09:45)
[2020-07-13] MEDS: ASCORBIC ACID 1,000 MG TAB PO SCH (09:45)
[2020-07-13] MEDS: CHOLECALCIFEROL (VITD3) 2,000 UNIT CAP PO SCH (09:46)
[2020-07-13 12:28] VITALS: BP 130/71
[2020-07-13] MEDS ORDERED: guaiFENesin-DM 100/10mg/5ml SYR PO PRN (12:45)
[2020-07-13 16:57] VITALS: BP 149/75
--- NOTE | 2020-07-13 19:15 | NUR ---
Opening Shift Note Received report from renee Mackay RN. Assumed care of patient, awake and alert. Patient is more alert and awake this time. Noticed patient still forgetting or cannot finished a sentence when asking question. No S/S of distress/SOB or pain. Instructed on POC and to call for assist PRN, will continue to monitor for changes Q1hr and PRN. Bed placed in lowest position, bed alarm turned on and call light within reach.
[2020-07-13] MEDS: DONEPEZIL HYDROCHLORIDE 5 MG TAB PO SCH (21:38)
[2020-07-13 22:00] VITALS: BP 127/67
[2020-07-14] MEDS: PIPERACILLIN-TAZOB 2.25GM 50 ML IV SCH ×2 (00:26→06:19)
[2020-07-14 05:00] VITALS: BP 141/72
--- NOTE | 2020-07-14 05:29 | NUR ---
Patent is resting in bed with eyes closed. No distress noted, on 5LNC saturating at 95.
[2020-07-14] MEDS: LEVOTHYROXINE SODIUM 100 MCG TAB PO SCH (06:20)
[2020-07-14 07:16] LABS: Hematocrit 20.6 % (36.0-46.0)
[2020-07-14 07:28] LABS: Potassium 3.9 mmol/L (3.5-5.1)
[2020-07-14 07:39] LABS: Albumin 2.3 g/dL (3.4-5.0); BUN/Creatinine Ratio 23.8; Bilirubin, Total 0.9 mg/dL (0.2-1.0); Calcium 8.5 mg/dL (8.5-10.1); Magnesium 2.1 mg/dL (1.6-2.6); Total Protein 6.6 g/dL (6.4-8.2)
[2020-07-14] MEDS: BUDESONIDE (INHALATION) 180 MCG IH IN SCH ×2 (08:20→21:57)
[2020-07-14 09:00] VITALS: BP 142/73
[2020-07-14] MEDS: FAMOTIDINE 20 MG TAB PO SCH (09:04)
[2020-07-14] MEDS: DOCUSATE SOD 100 MG CAP PO SCH ×2 (09:04→21:47)
[2020-07-14] MEDS: APIXABAN 5 MG TAB PO SCH ×2 (09:04→21:47)
[2020-07-14] MEDS: DexAMETHasone SOD PHOS 10MG/1ML VIAL INJ IV SCH (09:04)
[2020-07-14] MEDS: ZINC SULFATE 220mg CAP or TAB PO SCH (09:04)
[2020-07-14] MEDS: ASCORBIC ACID 1,000 MG TAB PO SCH (09:05)
[2020-07-14] MEDS: CHOLECALCIFEROL (VITD3) 2,000 UNIT CAP PO SCH (09:05)
[2020-07-14] MEDS: amLODIPine BESYLATE 5 MG TAB PO SCH (09:05)
--- NOTE | 2020-07-14 10:57 | NUR ---
CALL FROM [employer] [place]: ROSS TO ARRIVE AT 1300 FOR PICKUP WITH OXYGEN. LITO DELIVERED TWO TANKS TO [employer] [facility] FOR PATIENT. WILL HAVE TWO NURSE VERIFY DC PAPERWORK SINCE PATIENT IS A/OX1.
--- NOTE | 2020-07-14 11:15 | NUR ---
SANDHU CATHETER REMOVED: 10CC ASPIRATED FROM BALLOON, CATHETER INTACT, PATIENT TOLERATED WELL. 120ML YELLOW URINE NOTED IN SANDHU BAG UPON DC.
--- NOTE | 2020-07-14 11:16 | NUR ---
UPDATED SON ON PLAN OF CARE, VERBALIZED UNDERSTANDING PER SON, " THEY CAME OVER YESTERDAY, I SIGNED ALL THE PAPERWORK AND THEY GOT HER HEADING OVER THERE TODAY."
[2020-07-14] MEDS ORDERED: LEVOTHYROXINE SODIUM 100 MCG TAB PO ONE ×2 (12:00→12:30)
--- NOTE | 2020-07-14 12:02 | NUR ---
DC UPDATE: NO DC TODAY, HGB 7.0 AND NO BM, PER MD KRUEGER NO DC TODAY. GERALDINE MCKEON UPDATED AND CANCELLED TRANSPORTATION.
[2020-07-14 12:07] LABS: % Iron Saturation 27.7 % (15-50)
[2020-07-14 13:00] VITALS: BP 134/75
--- NOTE | 2020-07-14 13:20 | NUR ---
PATIENT ABLE TO EAT CLOSE TO 100% OF LUNCH MEAL. TOLERATED WELL.
[2020-07-14] MEDS: LACTULOSE 20Gm/30ML SOLN PO PRN (13:43)
[2020-07-14 13:49] LABS: Hematocrit 21.6 % (36.0-46.0); Hemoglobin 7.4 g/dL (12.2-16.2)
--- NOTE | 2020-07-14 14:07 | NUR ---
Nutrition Followup Note Wt: 45.6 kg Pt is positive for COVID isolation. pt with no distress noted per nursing. Pt is with a Mechanical Soft diet, with inadequate PO of 25% x 4 per RN doc Est Energy needs IBW 47 [id number] kcals (25-30kcal/kgIBW), Est Protein needs: 37-47 gms/day (0.8-1.0 gm/kgIBW r/t elev RFT). Will continue to monitor and reassess prn. LABS: BUN 29 H CREAT 1.22 H ALB 2.3 L GI: Pt is incontinent per RN note BS: 13 mod risk. Refer to wound assessment report for further details PES: 1) Increased nutrient needs r/t chronic medical condition aeb pt`s with weakness underweight and inadequate PO 2) Altered nutrition related lab valeus r.t current chronic medical condition aeb elev RFT choles Comments: Will continue to monitor PO status, skin status, pertinent labs and weight trends. Will f/u in 3-5 days Rec: 1) Consider CCHO 45 gm low choles along with current diet. 2) Refer to CDE on DC. 3) Continue current plan of care
[2020-07-14 17:00] VITALS: BP 126/84
--- NOTE | 2020-07-14 18:32 | NUR ---
CARE ENDORSED TO NOC RN.
--- NOTE | 2020-07-14 19:10 | NUR ---
Opening Shift Note Received report from renee Mackay RN. Assumed care of patient, awake and alert. No S/S of distress/SOB or pain. Instructed on POC and to call for assist PRN, will continue to monitor for changes Q1hr and PRN. Bed placed in lowest position, bed alarm turned on and call light within reach.
--- NOTE | 2020-07-14 20:00 | NUR ---
Assisted patient to eat. Patient consumed 25% of food.
[2020-07-14] MEDS: DONEPEZIL HYDROCHLORIDE 5 MG TAB PO SCH (21:47)
[2020-07-14] MEDS: ALBUTEROL SULF HFA 90MCG INH 200DOSE IN PRN (21:57)
[2020-07-14 22:00] VITALS: BP 146/88
[2020-07-15] VITALS (10 sets, daily range): BP systolic 119–175; BP diastolic 73–95
--- NOTE | 2020-07-15 00:30 | NUR ---
Complete bed changed done. Patient is incontinent of urine.
[2020-07-15 07:01] LABS: Basophils # (auto) 0 10 ^3/uL (0-0.2); Eosinophils # (auto) 0.1 10 ^3/uL (0-0.8); Nucleated Red Blood Cells % 0.5 %
[2020-07-15] MEDS: LEVOTHYROXINE SODIUM 100 MCG TAB PO SCH (07:01)
[2020-07-15] MEDS: BUDESONIDE (INHALATION) 180 MCG IH IN SCH ×2 (07:04→21:27)
[2020-07-15 07:05] LABS: Basophils % (auto) 0.2 % (0.0-2.0); Hematocrit 20.5 % (36.0-46.0); Lymphocytes # (auto) 0.7 10 ^3/uL (0.4-5.4); Lymphocytes % (auto) 10.3 % (10.0-50.0); Mean Corpuscular Hgb Conc. 32.8 g/dL (32.0-36.0); Mean Corpuscular Volume 100.7 fL (80.0-100.0); Monocytes # (auto) 0.4 10 ^3/uL (0-1.3); Monocytes % (auto) 5.6 % (0.0-12.0); Neutrophils # (auto) 5.3 10 ^3/uL (1.6-8.6); Neutrophils % (auto) 82.9 % (37.0-80.0); Platelet Count (auto) 256 10^3/uL (140-450); Red Blood Cells 2.03 10^6/uL (4.0-5.20); Red Cell Distribution Width 12.6 % (11.8-14.3); White Blood Cell 6.3 10^3/uL (4.4-10.8)
[2020-07-15 07:07] LABS: Hemoglobin 6.7 g/dL (12.2-16.2)
[2020-07-15 07:24] LABS: Potassium 3.1 mmol/L (3.5-5.1)
[2020-07-15 07:32] LABS: Albumin 2.3 g/dL (3.4-5.0); BUN/Creatinine Ratio 24.8; Bilirubin, Total 0.7 mg/dL (0.2-1.0); Calcium 8.5 mg/dL (8.5-10.1); Total Protein 6.8 g/dL (6.4-8.2)
--- NOTE | 2020-07-15 08:00 | NUR ---
PAGED DOCTOR REGARDING CRITICAL HGB OF 6.7 AWAITING CALL BACK.
--- NOTE | 2020-07-15 08:31 | NUR ---
PAGED DOCTOR X2 REGARDING CRITICAL HEMOGLOBIN OF 6.7. AWAITING CALL BACK.
[2020-07-15] MEDS: APIXABAN 5 MG TAB PO SCH ×2 (10:00→11:02)
[2020-07-15] MEDS: DexAMETHasone SOD PHOS 10MG/1ML VIAL INJ IV SCH (11:00)
[2020-07-15] MEDS: CHOLECALCIFEROL (VITD3) 2,000 UNIT CAP PO SCH (11:00)
[2020-07-15] MEDS: ASCORBIC ACID 1,000 MG TAB PO SCH (11:01)
[2020-07-15] MEDS: FAMOTIDINE 20 MG TAB PO SCH (11:01)
[2020-07-15] MEDS: ZINC SULFATE 220mg CAP or TAB PO SCH (11:01)
[2020-07-15] MEDS: DOCUSATE SOD 100 MG CAP PO SCH ×2 (11:02→22:55)
[2020-07-15] MEDS: amLODIPine BESYLATE 5 MG TAB PO SCH (11:03)
[2020-07-15] MEDS ORDERED: BISACODYL 10 MG RECT SUPP PR ONE (11:30)
[2020-07-15] MEDS ORDERED: PANTOPRAZOLE 40 MG TAB PO ONE (11:45)
[2020-07-15] MEDS: LACTULOSE 20Gm/30ML SOLN PO PRN (15:03)
--- NOTE | 2020-07-15 15:49 | NUR ---
Reassessment Patient was unable to transfer to SNF today, Briseyda ARMENDARIZ stated that patient hemoglobin was critical. SW notified Teresita from [facility] that patient transfer was delayed. Per Teresita, stated that Briseyda ARMENDARIZ notified her today of patient condition. Addendum: 07/17/20 at 0838 by DENAE ASCENCIO SS Patient was unable to transfer to home ([facility])today.
--- NOTE | 2020-07-15 16:52 | NUR ---
PATIENT GETTING BLOOD TRANSFUSION. WILL TRY PT TOMORROW. Addendum: 07/15/20 at 1652 by DORI VALADEZ PTT Amended: Links added.
[2020-07-15] MEDS: hydrALAZINE HCL 20 MG/ML VL IV PRN (19:24)
[2020-07-15] MEDS: HYDROcodone-ACET 5/325MG TAB PO PRN (19:26)
--- NOTE | 2020-07-15 19:30 | NUR ---
Opening Shift Note Received report from Hannah Rain RN. Assumed care of patient, awake and alert. No S/S of distress/SOB, but c/o pain to back. Will give pain medication as ordered. Insructed on POC and to call for assist PRN, will continue to monitor for changes Q1hr and PRN. Bed placed in lowest position, bed alarm turned on and call light within reach.
--- NOTE | 2020-07-15 20:00 | NUR ---
Patient refused dinner stating that her stomach hurts. Will continue to monitor.
[2020-07-15] MEDS: ALBUTEROL SULF HFA 90MCG INH 200DOSE IN PRN (21:27)
[2020-07-15] MEDS: DONEPEZIL HYDROCHLORIDE 5 MG TAB PO SCH (22:55)
[2020-07-15] MEDS: PANTOPRAZOLE 40 MG TAB PO SCH (22:56)
--- NOTE | 2020-07-15 23:30 | NUR ---
Patient is having extra large watery bowel movement. Complete bed changed and bed bath done. Patient tolerated well.
[2020-07-16 05:00] VITALS: BP 161/93
--- NOTE | 2020-07-16 06:29 | NUR ---
[facility] In house Covid-19 swab walked to lab with KALA Valdez.
--- NOTE | 2020-07-16 06:30 | NUR ---
Patient's blood pressure is 159/74.
[2020-07-16] MEDS: LEVOTHYROXINE SODIUM 100 MCG TAB PO SCH (06:37)
[2020-07-16] MEDS: ALBUTEROL SULF HFA 90MCG INH 200DOSE IN PRN ×2 (08:13→23:18)
[2020-07-16] MEDS: BUDESONIDE (INHALATION) 180 MCG IH IN SCH ×2 (08:13→23:18)
[2020-07-16 08:37] LABS: Albumin 2.5 g/dL (3.4-5.0); Calcium 8.7 mg/dL (8.5-10.1); Potassium 3.4 mmol/L (3.5-5.1)
[2020-07-16 08:42] LABS: BUN/Creatinine Ratio 26.8; Bilirubin, Total 0.8 mg/dL (0.2-1.0); Total Protein 7.2 g/dL (6.4-8.2)
[2020-07-16] MEDS: DOCUSATE SOD 100 MG CAP PO SCH ×2 (10:00→22:00)
[2020-07-16] MEDS: ASCORBIC ACID 1,000 MG TAB PO SCH (10:15)
[2020-07-16] MEDS: ZINC SULFATE 220mg CAP or TAB PO SCH (10:18)
[2020-07-16] MEDS: PANTOPRAZOLE 40 MG TAB PO SCH ×2 (10:19→22:01)
[2020-07-16] MEDS: CHOLECALCIFEROL (VITD3) 2,000 UNIT CAP PO SCH (10:19)
[2020-07-16] MEDS: amLODIPine BESYLATE 5 MG TAB PO SCH (10:20)
[2020-07-16] MEDS ORDERED: POTASSIUM CHL 20 Meq TABLET PO ONE ×3 (10:30→11:45)
[2020-07-16 10:38] LABS: Hematocrit 28.3 % (36.0-46.0); Hemoglobin 9.5 g/dL (12.2-16.2)
[2020-07-16] MEDS ORDERED: DONE10TA40 PO (11:57)
[2020-07-16] MEDS ORDERED: PANT40TA2 PO (11:57)
[2020-07-16] MEDS ORDERED: ALBUAER3 IN (11:57)
[2020-07-16] MEDS ORDERED: CHOL1CAP47 PO (11:57)
[2020-07-16] MEDS ORDERED: BUDE2SUS3 IN (11:57)
[2020-07-16] MEDS ORDERED: AML5T PO (11:57)
[2020-07-16] MEDS ORDERED: FER325T PO (11:57)
[2020-07-16] MEDS ORDERED: DOCU-94 PO (11:57)
[2020-07-16] MEDS ORDERED: ASPI-378 PO (11:57)
[2020-07-16] MEDS ORDERED: ZINC220T6 PO (11:57)
[2020-07-16] MEDS ORDERED: ASCO10003 PO (11:57)
[2020-07-16] MEDS ORDERED: LEVO112T4 PO (11:57)
--- NOTE | 2020-07-16 12:32 | NUR ---
VENU spoke with Briseyda RN to confirm discharge order for patient. Per Briseyda RN, patient is discharge today, per request from Briseyda RN, for patient discharge potato picker at 6 pm, instead patient will be picked up at 4 pm today. VENU called Teresita at [facility], Per Teresita will accept patient, she will set up transportation for patient at 4 pm today. VENU called [facility] and notified Aixa that patient is scheduled for discharge from [facility] to [facility] at [address] [place] [address] ([phone]). VENU notified Aixa from [facility] that patient will arrive to her new residency between 4 - 5 pm today. Per Teresita, from [facility], Arti had delivered oxygen on Wednesday07/14/2020, Per Teresita, she stated that oxygen equipment has already arrived for patient use.
[2020-07-16 13:00] VITALS: BP 135/82
--- NOTE | 2020-07-16 15:56 | NUR ---
Spoke with patient family member Elif patient family informed patient to be discharged to [facility] board and care.
[2020-07-16] MEDS: FERROUS SULFATE 325 MG TAB PO SCH (18:00)
--- NOTE | 2020-07-16 18:22 | NUR ---
RECEIVED PHONE CALL FROM GERALDINE FROM [facility] PER GERALDINE, PATIENT TRANSPORTATION WAS SUPPOSE TO BE SET UP BY HOSPITAL AND NOONE TRANSPORTED PATIENT AT SCHEDULE TIME PER GERALDINE THEY CAN NOT RECEIVE PATIENT UNTIL TOMORROW. CALLED AND SPOKE WITH ART LEA ABOUT TRANSPORTATION PER ART SHE WILL CALL AND SPEAK WITH GERALDINE.
--- NOTE | 2020-07-16 19:15 | NUR ---
Opening Shift Note Assumed care of patient. Patient is awake and alert. No S/S of respiratory distress. Patient denies pain at this time. Bed placed in lowest locked position, bed alarm turned on, and call light within reach. POC discussed; patient to call for assistance PRN. Will continue to monitor for changes Q1hr and PRN.
[2020-07-16 20:00] VITALS: BP 128/81
[2020-07-16 22:00] VITALS: BP 128/81
[2020-07-16] MEDS: DONEPEZIL HYDROCHLORIDE 5 MG TAB PO SCH (22:00)
[2020-07-17 05:00] VITALS: BP 160/100
[2020-07-17] MEDS: hydrALAZINE HCL 20 MG/ML VL IV PRN (06:05)
[2020-07-17] MEDS: LEVOTHYROXINE SODIUM 100 MCG TAB PO SCH (06:52)
[2020-07-17] MEDS: FERROUS SULFATE 325 MG TAB PO SCH (08:00)
--- NOTE | 2020-07-17 08:38 | NUR ---
METAL FURNACE OPERATOR Received a page from KALA Anaya on 07/16/20 at 18:23 advising me transportation never arrived and Teresita tricia Aldotom vera is unable to wait for patient to arrived to home. Contact Teresita [facility] who informed me she did not mentioned anything about not being able to arranged transportation for patient and advised me [facility] will be calling me and arranging transportation. Received a call from Marisel at 18:32 on 07/16/20 advising me that transportation will have to be reschedule in the morning due to no transportation availability. Contact KALA Anaya at 18:38 advising her transportation will be arranged in the morning and Marisel with [facility] will follow up in the am with KARYN.
[2020-07-17 09:00] VITALS: BP 139/78
--- NOTE | 2020-07-17 09:43 | NUR ---
D/C Planning Received a call from Marisel with [facility] advising me transportation has been arranged with [employer] via gurney and oxygen with a 11am lease picker time. Will informed bedside Nurse Jaclyn.
[2020-07-17] MEDS: BUDESONIDE (INHALATION) 180 MCG IH IN SCH (10:00)
[2020-07-17] MEDS: DOCUSATE SOD 100 MG CAP PO SCH (10:00)
[2020-07-17] MEDS ORDERED: LEV100T PO (10:38)
[2020-07-17] MEDS: CHOLECALCIFEROL (VITD3) 2,000 UNIT CAP PO SCH (10:44)
[2020-07-17] MEDS: ZINC SULFATE 220mg CAP or TAB PO SCH (10:44)
[2020-07-17] MEDS: ASCORBIC ACID 1,000 MG TAB PO SCH (10:45)
[2020-07-17] MEDS: PANTOPRAZOLE 40 MG TAB PO SCH (10:45)
[2020-07-17] MEDS: amLODIPine BESYLATE 5 MG TAB PO SCH (10:46)
--- NOTE | 2020-07-17 11:25 | NUR ---
Discharge instructions given as ordered. Encourage to follow up with PMD as instructed. All questions and concerns addressed. Patient and family member verbalized understanding. Medication reconciliation form completed and copy given to patient. Prescribed medication given to patient. IV removed with catheter intact, pressure dressing applied. Telemetry unit returned to ICU. Patient taken to vehicle via gurney with all personal belongings, accompanied by transportation staff. No distress noted at time of departure.
== END 2020-07-17 11:25 | disposition home health service (06) | DRG 871 ==
LOC: ER 13:22 → TELE 13:23 → TELE-EAST 07-05 02:56
PROVIDERS: ADMIT Nurse Practitioner Acute Care; ATTEND Internal Medicine
PROC: XW033E5 Introduction of Remdesivir Anti-infective into Peripheral Vein, Percutaneous Approach, New Technology Group 5 (ICD-10-PCS; 2020-07-08)
PROC: XW13325 Transfusion of Convalescent Plasma (Nonautologous) into Peripheral Vein, Percutaneous Approach, New Technology Group 5 (ICD-10-PCS; principal; 2020-07-11)
PROC: 30233N1 Transfusion of Nonautologous Red Blood Cells into Peripheral Vein, Percutaneous Approach (ICD-10-PCS; 2020-07-15)
DX: A41.89 Other specified sepsis (principal); U07.1 COVID-19; J12.89 Other viral pneumonia; G93.41 Metabolic encephalopathy; I21.A1 Myocardial infarction type 2; J96.01 Acute respiratory failure with hypoxia; D68.59 Other primary thrombophilia; R64 Cachexia; Z68.1 Body mass index [BMI] 19.9 or less, adult; J44.0 Chronic obstructive pulmonary disease with (acute) lower respiratory infection; N17.9 Acute kidney failure, unspecified; N18.30 Chronic kidney disease, stage 3 unspecified; E03.9 Hypothyroidism, unspecified; G30.9 Alzheimer's disease, unspecified; F02.80 Dementia in other diseases classified elsewhere, unspecified severity, without behavioral disturbance, psychotic disturbance, mood disturbance, and anxiety; I12.9 Hypertensive chronic kidney disease with stage 1 through stage 4 chronic kidney disease, or unspecified chronic kidney disease; D63.1 Anemia in chronic kidney disease; E55.9 Vitamin D deficiency, unspecified; E87.6 Hypokalemia; K59.00 Constipation, unspecified; E78.5 Hyperlipidemia, unspecified; I48.91 Unspecified atrial fibrillation; N28.1 Cyst of kidney, acquired; Z86.73 Personal history of transient ischemic attack (TIA), and cerebral infarction without residual deficits; Z79.899 Other long term (current) drug therapy; Z90.710 Acquired absence of both cervix and uterus; Z88.8 Allergy status to other drugs, medicaments and biological substances; Z88.5 Allergy status to narcotic agent
CPT/HCPCS: 36415; 36600; 70450; 71045; 71250; 76775; 80048; 80053; 80061; 81001; 82270; 82306; 82570; 82607; 82728; 82805; 82962; 83036; 83540; 83550; 83605; 83615; 83735; 83880; 84156; 84300; 84443; 84484; 85014; 85018; 85025; 85379; 85610; 85730; 86141; 86850; 86900; 86901; 86922; 87040; 87086; 87426; 92610; 93005; 93306; 93970; 94640; 96360; 97110; 97116; 97163; 97530; 99291; G0378; J1100; J1815; J2543; J3480; J3490